=== PATIENT | female | born 1950 | race Caucasian/White ===

== ENCOUNTER → 2016-08-24 | Outpatient (CLI) | payer BC ==
--- NOTE | 2016-08-25 09:34 | MM ---
Reason for exam: screening (asymptomatic). Last mammogram was performed 2 years ago. History: Patient is postmenopausal. Family history of breast cancer in maternal aunt. Physical Findings: A clinical breast exam by your physician is recommended on an annual basis and results should be correlated with mammographic findings. MG Screening Mammo w CAD Bilateral CC and MLO view(s) were taken. Prior study comparison: August 23, 2014, mammogram, performed at [facility]. March 17, 2014, mammogram, performed at [facility]. There are scattered fibroglandular densities. There is no discrete abnormality. No significant changes when compared with prior studies. ASSESSMENT: Negative, BI-RAD 1 RECOMMENDATION: Routine screening mammogram of both breasts in 1 year.
== END | disposition home or self-care (01) ==
LOC: RADMAMWWP 16:29
PROVIDERS: ATTEND Family Medicine
DX: Z12.31 Encounter for screening mammogram for malignant neoplasm of breast (principal)

== ENCOUNTER → 2017-09-19 | Outpatient (CLI) | payer BC ==
--- NOTE | 2017-09-19 08:50 | BD ---
EXAMINATION TYPE: MG DEXA axial skeleton. DATE OF EXAM: 09/19/2017 COMPARISON: NONE CLINICAL HISTORY: asymptomatic menopause Height: 5'1 Weight: 214 FRAX RISK QUESTIONS: Alcohol (3 or more units per day): no Family History (Parent hip fracture): no Glucocorticoids (More than 3mos): no (Ex: prednisone, prednisolone, methylprednisolone, dexamethasone, and hydrocortisone). History of Fracture in Adulthood: yes Secondary Osteoporosis: 1. Type 1 Diabetes: no 2. Hyperthyroidism: no 3. Menopause before 45: no 4. Malnutrition: no 5. Chronic liver disease: no Rheumatoid Arthritis: no Current Tobacco Use: no RISK FACTORS HISTORY OF: Postmenopausal woman: MEDICATIONS: Additional Medications: blood pressure, cholesterol, Additional History: EXAM MEASUREMENTS: Bone mineral densitometry was performed using the [employer] System. Bone mineral density as measured about the Lumbar spine is: ----- L1-L4(G/cm2): 1.033 T Score Values are as follows: ----- L2: -1.5 ----- L3: -1.2 ----- L4: -1.6 ----- L1-L4: -1.2 Bone mineral density about the R hip (g/cm2): 0.938 Bone mineral density about the L hip (g/cm2): 0.910 T Score values are as follows: -----R Neck: -0.7 -----L Neck: -0.9 -----R Total: -0.3 -----L Total: 0.0 IMPRESSION: Osteopenia (T Score between -2.5 and -1). There is slightly increased risk of fracture and the patient may be considered for treatment. Re-Screen 2-5 years. NOTE: T-SCORE=SD OF THE YOUNG ADULT MEAN.
== END | disposition home or self-care (01) ==
LOC: RADBDWWP 07:10
PROVIDERS: ATTEND Family Medicine
DX: M85.80 Other specified disorders of bone density and structure, unspecified site (principal); Z78.0 Asymptomatic menopausal state
CPT/HCPCS: 77080

== ENCOUNTER → 2017-10-30 | Outpatient (CLI) | payer BC ==
--- NOTE | 2017-10-30 09:08 | MM ---
Reason for exam: screening (asymptomatic). Last mammogram was performed 1 year and 2 months ago. History: Patient is postmenopausal. Family history of breast cancer in maternal aunt. Physical Findings: A clinical breast exam by your physician is recommended on an annual basis and results should be correlated with mammographic findings. MG Screening Mammo w CAD Bilateral CC and MLO view(s) were taken. Prior study comparison: August 24, 2016, bilateral MG screening mammo w CAD. August 23, 2014, mammogram, performed at [facility]. There are scattered fibroglandular densities. There is no discrete abnormality. No significant changes when compared with prior studies. ASSESSMENT: Negative, BI-RAD 1 RECOMMENDATION: Routine screening mammogram of both breasts in 1 year.
== END | disposition home or self-care (01) ==
LOC: RADMAMWWP 07:02
PROVIDERS: ATTEND Family Medicine
DX: Z12.31 Encounter for screening mammogram for malignant neoplasm of breast (principal)
CPT/HCPCS: 77067

== ENCOUNTER 2018-12-03 08:55 | Emergency (ER) | payer MEDICARE, BC ==
[2018-12-03 09:04] VITALS: RESP 18; TEMP 98.2
[2018-12-03] MEDS ORDERED: ASPIRIN 81 MG PO STA (09:15)
[2018-12-03] MEDS ORDERED: NITROGLYCERIN OINT 1 INCH/GM PACKET TOPICAL STA (09:15)
[2018-12-03] MEDS ORDERED: SODIUM CHLORIDE 0.9% 500 ML 500 ML IV STA (09:15)
--- NOTE | 2018-12-03 09:20 | ED ---
General Adult HPI - General Chief complaint: Chest Pain Stated complaint: chest pain Time Seen by Provider: 12/03/18 09:00 Source: patient, RN notes reviewed Mode of arrival: ambulatory Limitations: no limitations - History of Present Illness Initial comments: This is a 68-year-old female who presents to the emergency department stating that on she was sitting down eating dinner she felt lightheaded and she got sick blood pressure sat down again and while taking her blood pressure she passed out. Patient's states she was only out for a few seconds and she was back to being alert and oriented. Patient states on Sunday she felt a little lightheaded initially in the early childhood education worker but after that she felt fine and then again this morning she started having some left-sided chest pain and some discomfort in her arm that lasted all about 5 minutes. Patient states during this time she also felt lightheaded. Patient states she has had a couple episodes since that she had palpitations. Patient denies any recent fever chills or cough. Patient denies any previous heart disease. Patient denies having any symptoms currently. Patient denies headache patient denies numbness weakness. Patient denies any leg swelling or calf tenderness. - Related Data Home Medications Medication Instructions Recorded Confirmed Calcium Carbonate/Vitamin D3 1 tab PO DAILY 12/03/18 12/03/18 [Calcium 500-Vit D3 200 Tablet] Lysine 500 mg PO DAILY 12/03/18 12/03/18 Montelukast [Singulair] 10 mg PO DAILY 12/03/18 12/03/18 Nebivolol HCl [Bystolic] 10 mg PO DAILY 12/03/18 12/03/18 Omeprazole 20 mg PO HS 12/03/18 12/03/18 Rosuvastatin Calcium [Crestor] 5 mg PO HS 12/03/18 12/03/18 Turmeric Root Extract [Turmeric] 500 mg PO DAILY 12/03/18 12/03/18 Allergies Allergy/AdvReac Type Severity Reaction Status Date / Time No Known Allergies Allergy Verified 12/03/18 09:46 Review of Systems ROS Statement: Those systems with pertinent positive or pertinent negative responses have been documented in the HPI. ROS Other: All systems not noted in ROS Statement are negative. Past Medical History Past Medical History: GERD/Reflux, Hyperlipidemia, Hypertension, Syncope History of Any Multi-Drug Resistant Organisms: None Reported Past Surgical History: Joint Replacement Past Psychological History: No Psychological Hx Reported Smoking Status: Never smoker Past Alcohol Use History: Occasional Past Drug Use History: None Reported General Exam - General Exam Comments Initial Comments: GENERAL: Patient is well-developed and well-nourished. Patient is nontoxic and well- hydrated and is in no acute distress. ENT: Neck is soft and supple. No significant lymphadenopathy is noted. Oropharynx is clear. Moist mucous membranes. Neck has full range of motion without eliciting any pain. EYES: The sclera were anicteric and conjunctiva were pink and moist. Extraocular movements were intact and pupils were equal round and reactive to light. Eyelids were unremarkable. PULMONARY: Unlabored respirations. Good breath sounds bilaterally. No audible rales rhonchi or wheezing was noted. CARDIOVASCULAR: There is a regular rate and rhythm without any murmurs gallops or rubs. ABDOMEN: Soft and nontender with normal bowel sounds. SKIN: Skin is clear with no lesions or rashes and otherwise unremarkable. NEUROLOGIC: Patient is alert and oriented x3. Cranial nerves II through XII are grossly intact. Motor and sensory are also intact. Normal speech, volume and content. Symmetrical smile. MUSCULOSKELETAL: Normal extremities with adequate strength and full range of motion. No lower extremity swelling or edema. No calf tenderness. LYMPHATICS: No significant lymphadenopathy is noted PSYCHIATRIC: Normal psychiatric evaluation. Limitations: no limitations Course Vital Signs 12/03/18 12/03/18 12/03/18 08:58 09:20 09:38 Temperature 98.2 F Pulse Rate 69 64 Pulse Rate [ 69 Retail Pharmacy Manager ] Pulse Rate [ 66 Sitting] Pulse Rate [ 70 Standing] Pulse Rate [ 63 Supine] Respiratory 18 18 Rate Blood Pressure 200/80 162/103 Blood Pressure 149/82 [Sitting] Blood Pressure 151/94 [Standing] Blood Pressure 159/81 [Supine] O2 Sat by Pulse 98 96 Oximetry 12/03/18 10:26 Temperature Pulse Rate 61 Pulse Rate [ Retail Pharmacy Manager ] Pulse Rate [ Sitting] Pulse Rate [ Standing] Pulse Rate [ Supine] Respiratory 18 Rate Blood Pressure 134/80 Blood Pressure [Sitting] Blood Pressure [Standing] Blood Pressure [Supine] O2 Sat by Pulse 100 Oximetry Medical Decision Making - Medical Decision Making EKG shows normal sinus rhythm at 65 bpm MS interval 270 QRS 130 for QT intervals 418 QTC is 434 per patient's EKG shows no ST segment elevation or depression or T wave abnormalities are noted. Chest x-ray shows no acute abnormality I went in the room and recommended that she be admitted to the hospital but she refused. is in the room and understood that I wanted the patient to be admitted. - Lab Data Result diagrams: 12/03/18 09:29 12/03/18 09:29 Lab Results 12/03/18 12/03/18 12/03/18 Range/Units 09:29 09:29 09:29 WBC 7.2 (3.8-10.6) k/uL RBC 4.95 (3.80-5.40) m/uL Hgb 13.2 (11.4-16.0) gm/dL Hct 40.7 (34.0-46.0) % MCV 82.3 (80.0-100.0) fL MCH 26.7 (25.0-35.0) pg MCHC 32.5 (31.0-37.0) g/dL RDW 13.6 (11.5-15.5) % Plt Count 383 (150-450) k/uL Neutrophils % 60 % Lymphocytes % 28 % Monocytes % 7 % Eosinophils % 2 % Basophils % 1 % Neutrophils # 4.3 (1.3-7.7) k/uL Lymphocytes # 2.0 (1.0-4.8) k/uL Monocytes # 0.5 (0-1.0) k/uL Eosinophils # 0.2 (0-0.7) k/uL Basophils # 0.1 (0-0.2) k/uL PT 10.2 (9.0-12.0) sec INR 0.9 (<1.2) APTT 23.8 (22.0-30.0) sec Sodium 140 (137-145) mmol/L Potassium 4.7 (3.5-5.1) mmol/L Chloride 104 (98-107) mmol/L Carbon Dioxide 26 (22-30) mmol/L Anion Gap 10 mmol/L BUN 20 H (7-17) mg/dL Creatinine 0.69 (0.52-1.04) mg/dL Est GFR (CKD-EPI)AfAm >90 (>60 ml/min/1.73 sqM) Est GFR (CKD-EPI)NonAf >90 (>60 ml/min/1.73 sqM) Glucose 154 H (74-99) mg/dL Calcium 9.8 (8.4-10.2) mg/dL Magnesium 1.8 (1.6-2.3) mg/dL Total Bilirubin 0.4 (0.2-1.3) mg/dL AST 22 (14-36) U/L ALT 24 (9-52) U/L Alkaline Phosphatase 61 (38-126) U/L Troponin I (0.000-0.034) ng/mL Total Protein 7.1 (6.3-8.2) g/dL Albumin 4.4 (3.5-5.0) g/dL TSH 1.220 (0.465-4.680) mIU/L Free T4 1.20 (0.78-2.19) ng/dL 12/03/18 Range/Units 09:29 WBC (3.8-10.6) k/uL RBC (3.80-5.40) m/uL Hgb (11.4-16.0) gm/dL Hct (34.0-46.0) % MCV (80.0-100.0) fL MCH (25.0-35.0) pg MCHC (31.0-37.0) g/dL RDW (11.5-15.5) % Plt Count (150-450) k/uL Neutrophils % % Lymphocytes % % Monocytes % % Eosinophils % % Basophils % % Neutrophils # (1.3-7.7) k/uL Lymphocytes # (1.0-4.8) k/uL Monocytes # (0-1.0) k/uL Eosinophils # (0-0.7) k/uL Basophils # (0-0.2) k/uL PT (9.0-12.0) sec INR (<1.2) APTT (22.0-30.0) sec Sodium (137-145) mmol/L Potassium (3.5-5.1) mmol/L Chloride (98-107) mmol/L Carbon Dioxide (22-30) mmol/L Anion Gap mmol/L BUN (7-17) mg/dL Creatinine (0.52-1.04) mg/dL Est GFR (CKD-EPI)AfAm (>60 ml/min/1.73 sqM) Est GFR (CKD-EPI)NonAf (>60 ml/min/1.73 sqM) Glucose (74-99) mg/dL Calcium (8.4-10.2) mg/dL Magnesium (1.6-2.3) mg/dL Total Bilirubin (0.2-1.3) mg/dL AST (14-36) U/L ALT (9-52) U/L Alkaline Phosphatase (38-126) U/L Troponin I <0.012 (0.000-0.034) ng/mL Total Protein (6.3-8.2) g/dL Albumin (3.5-5.0) g/dL TSH (0.465-4.680) mIU/L Free T4 (0.78-2.19) ng/dL Disposition Clinical Impression: Syncope Disposition: HOME SELF-CARE Condition: Good Instructions (If sedation given, give patient instructions): Syncope (ED) Is patient prescribed a controlled substance at d/c from ED?: No Referrals: Adriana Schmitz MD [Primary Care Provider] - 1-2 days Time of Disposition: 11:44
[2018-12-03 09:46] LABS: Basophils # (A) 0.1 k/uL (0-0.2); Basophils % (A) 1 %; Eosinophils # (A) 0.2 k/uL (0-0.7); Eosinophils % (A) 2 %; HCT 40.7 % (34.0-46.0); HGB 13.2 gm/dL (11.4-16.0); Lymphocytes % (A) 28 %; MCH 26.7 pg (25.0-35.0); MCHC 32.5 g/dL (31.0-37.0); MCV 82.3 fL (80.0-100.0); Monocytes # (A) 0.5 k/uL (0-1.0); Monocytes % (A) 7 %; Neutrophils # (A) 4.3 k/uL (1.3-7.7); Neutrophils % (A) 60 %; Platelet Count 383 k/uL (150-450); RBC 4.95 m/uL (3.80-5.40); RDW 13.6 % (11.5-15.5); WBC 7.2 k/uL (3.8-10.6)
[2018-12-03 09:54] LABS: INR 0.9 (<1.2); Partial Thromboplastin Time 23.8 sec (22.0-30.0); Prothrombin Time 10.2 sec (9.0-12.0)
--- NOTE | 2018-12-03 10:01 | XR ---
EXAMINATION TYPE: XR chest 2V DATE OF EXAM: 12/03/2018 COMPARISON: None HISTORY: 68-year-old female with chest pain TECHNIQUE: PA and lateral views FINDINGS: The cardiomediastinal silhouette, aorta, and pulmonary vasculature are within normal limits. Slightly low lung volumes with crowded vascular markings. There may be some mild peribronchial cuffing centra lly. Otherwise, lungs and pleural spaces are clear. IMPRESSION: Some hypoventilatory changes. There may be mild central peribronchial cuffing that could reflect bron chitis or asthma. Otherwise, no acute cardiopulmonary process.
[2018-12-03 10:02] LABS: ALT 24 U/L (9-52); AST 22 U/L (14-36); Albumin 4.4 g/dL (3.5-5.0); Alkaline Phosphatase 61 U/L (38-126); Anion Gap 10 mmol/L; Blood Urea Nitrogen 20 mg/dL (7-17); Calcium 9.8 mg/dL (8.4-10.2); Carbon Dioxide 26 mmol/L (22-30); Chloride 104 mmol/L (98-107); Glucose 154 mg/dL (74-99); Magnesium 1.8 mg/dL (1.6-2.3); Potassium 4.7 mmol/L (3.5-5.1); Sodium 140 mmol/L (137-145); Total Bilirubin 0.4 mg/dL (0.2-1.3); Total Protein 7.1 g/dL (6.3-8.2)
[2018-12-03 12:14] VITALS: BP 134/77; PULSE 63
== END 2018-12-03 12:00 | disposition home or self-care (01) ==
LOC: EC 08:55
DX: R55 Syncope and collapse (principal); R07.9 Chest pain, unspecified; R42 Dizziness and giddiness; K21.9 Gastro-esophageal reflux disease without esophagitis; E78.5 Hyperlipidemia, unspecified; I10 Essential (primary) hypertension; Z96.89 Presence of other specified functional implants; Z53.29 Procedure and treatment not carried out because of patient's decision for other reasons; Z79.899 Other long term (current) drug therapy
CPT/HCPCS: 36415; 71046; 80053; 83735; 84439; 84443; 84484; 85025; 85610; 85730; 93005; 99285

== ENCOUNTER → 2018-12-10 | Outpatient (CLI) | payer BC, MEDICARE | END | disposition home or self-care (01) | LOC: RADECHMAIN 12:15 | PROVIDERS: ATTEND Family Medicine | DX: I49.9 Cardiac arrhythmia, unspecified (principal) | CPT/HCPCS: 93270 ==

== ENCOUNTER → 2018-12-13 | Outpatient (CLI) | payer MEDICARE, BC ==
[2018-12-13 18:41] LABS: LDL Cholesterol,Calculated 82.8 mg/dL (0.0-131.0); VLDL Calculation 26.2 mg/dL (5.00-40.00)
== END | disposition home or self-care (01) ==
LOC: LABWHC1 08:57
PROVIDERS: ATTEND Family Medicine
DX: E78.00 Pure hypercholesterolemia, unspecified (principal)
CPT/HCPCS: 36415; 80061

== ENCOUNTER → 2019-04-11 | Outpatient (CLI) | payer BC ==
--- NOTE | 2019-04-14 09:35 | MM ---
Reason for exam: screening (asymptomatic). Last mammogram was performed 1 year and 5 months ago. History: Patient is postmenopausal and is nulliparous. Family history of breast cancer in maternal aunt. Physical Findings: A clinical breast exam by your physician is recommended on an annual basis and results should be correlated with mammographic findings. MG Screening Mammo w CAD Bilateral CC and MLO view(s) were taken. Prior study comparison: October 30, 2017, bilateral MG screening mammo w CAD. August 24, 2016, bilateral MG screening mammo w CAD. There are scattered fibroglandular densities. No significant changes when compared with prior studies. ASSESSMENT: Negative, BI-RAD 1 RECOMMENDATION: Routine screening mammogram of both breasts in 1 year.
== END | disposition home or self-care (01) ==
LOC: RADMAMWWP 07:06
PROVIDERS: ATTEND Family Medicine
DX: Z12.31 Encounter for screening mammogram for malignant neoplasm of breast (principal)
CPT/HCPCS: 77067

== ENCOUNTER → 2020-04-30 | Outpatient (CLI) | payer BC ==
--- NOTE | 2020-05-03 14:02 | MM ---
Reason for exam: screening (asymptomatic). Last mammogram was performed 1 year and 1 month ago. History: Patient is postmenopausal and is nulliparous. Family history of breast cancer in maternal aunt. Physical Findings: A clinical breast exam by your physician is recommended on an annual basis and results should be correlated with mammographic findings. MG Screening Mammo w CAD Bilateral CC and MLO view(s) were taken. Prior study comparison: April 11, 2019, bilateral MG screening mammo w CAD. October 30, 2017, bilateral MG screening mammo w CAD. There are scattered fibroglandular densities. No significant changes when compared with prior studies. ASSESSMENT: Benign, BI-RAD 2 RECOMMENDATION: Routine screening mammogram of both breasts in 1 year.
--- NOTE | 2020-05-03 14:21 | BD ---
EXAMINATION TYPE: Axial Bone Density DATE OF EXAM: 04/30/2020 COMPARISON: 09.19.2017 CLINICAL HISTORY: 70 YR OLD FEMALE.....ICD-10 CODE: Z78.0 POST MENOPAUSAL Height: 60.2 Weight: 195 FRAX RISK QUESTIONS: History of Fracture in Adulthood: YES RISK FACTORS HISTORY OF: HX OF RT ANKLE FRACTURE ADULT Postmenopausal woman: YES, AT 53 YRS OLD Lost more than 2 inches in height since high school: YES Hyperparathyroidism: NO Adrenal Insufficiency: NO MEDICATIONS: Additional Medications: BP MEDS, METFORMIN, CALCIUM WITH D, REFLUX MEDS, TUMS, STATIN FOR CHOLESTEROL Additional History: HYPERTENSION, DIABETIC, REFLUX, CHOLESTEROL EXAM MEASUREMENTS: Bone mineral densitometry was performed using the [employer] System. Bone mineral density as measured about the Lumbar spine is: ----- L1-L4(G/cm2): 1.083 T Score Values are as follows: ----- L1: -1.2 ----- L2: -1.0 ----- L3: -0.4 ----- L4: -0.9 ----- L1-L4: -0.8 Bone mineral density has: Increased 7.8% since study of: 09.19.2017 Bone mineral density about the R hip (g/cm2): 0.959 Bone mineral density about the L hip (g/cm2): 1.038 T Score values are as follows: -----R Neck: -0.6 -----L Neck: -0.8 -----R Total: -0.4 -----L Total: 0.2 Bone mineral density has: Increased 1.2% since study of: 09.19.2017 FRAX%s: THERE IS A 12.2% CHANCE FOR A MAJOR OSTEOPOROTIC FX AND A 0.9% FOR HIP....PROBABILITY FOR F X IN 10 YRS TIME IMPRESSION: Normal (Values between +1 and -1 indicate normal bone mass). Consider repeating this study in 5 year s or sooner if there is some new clinical indication. NOTE: T-SCORE=SD OF THE YOUNG ADULT MEAN.
== END | disposition home or self-care (01) ==
LOC: RADBDWWP 13:05
PROVIDERS: ATTEND Family Medicine
DX: Z12.31 Encounter for screening mammogram for malignant neoplasm of breast (principal); M89.9 Disorder of bone, unspecified
CPT/HCPCS: 77067; 77080

== ENCOUNTER → 2021-01-28 | Day surgery (SDC) | payer MEDICARE ==
[2021-01-26 08:19] VITALS: BMI 36.6
[~2021-01-28] MED LIST: LACTATED RINGERS 1,000 ML IV SCH; LIDOCAINE 1% (10MG/ML) FOR IV START INTRADERMA PRN; PROPOFOL 10 MG/ML 20 ML VIAL IV ONE
[2021-01-28 08:05] LABS: Glucose,Whole Blood 167 mg/dL (75-99)
[2021-01-28 08:06] VITALS: TEMP 97.4
--- NOTE | 2021-01-28 08:45 | P.PCN ---
Date of Procedure: 01/28/21 Procedure(s) Performed: BRIEF HISTORY: Patient is a 71-year-old pleasant white female scheduled for an elective colonoscopy as a part of evaluation of positivecolouard., Her last colonoscopy was 10 years ago PROCEDURE PERFORMED: Colonoscopy. PREOPERATIVE DIAGNOSIS: Positive cologuard. IV sedation per Anesthesia. PROCEDURE: After informed consent was obtained, the patient, was brought into the endoscopy unit. IV sedation was administered by Anesthesia under continuous monitoring. Digital rectal examination was normal. Initially the Olympus CF-160 flexible video colonoscope was then inserted in the rectum, gradually advanced into the cecum without any difficulty. Careful examination was performed as the scope was gradually being withdrawn. Ileocecal valve and the appendiceal orifice were visualized and appeared normal. Prep was excellent. Mucosa of the cecum, ascending colon, transverse colon, descending colon, sigmoid colon, and rectum appeared normal. Scattered sigmoid diverticulosis. Retroflexion was performed in the rectum and no lesions were seen. The patient tolerated the procedure well. IMPRESSION: Normal-appearing colon from rectum to cecum with no evidence of colorectal neoplasia . Scattered sigmoid diverticulosis. RECOMMENDATIONS: Findings of this examination were discussed with the patient as well as a family.. She was advised to have a repeat screening colonoscopy in 10 years.
[2021-01-28 08:58] VITALS: RESP 16
[2021-01-28 09:17] VITALS: BP 152/80; PULSE 75
== END ==
LOC: ORWHC2ENDO 07:26
PROVIDERS: ATTEND Internal Medicine Gastroenterology
DX: R19.5 Other fecal abnormalities (principal); K57.90 Diverticulosis of intestine, part unspecified, without perforation or abscess without bleeding; Z79.899 Other long term (current) drug therapy; I10 Essential (primary) hypertension; E78.5 Hyperlipidemia, unspecified; E11.9 Type 2 diabetes mellitus without complications; K21.9 Gastro-esophageal reflux disease without esophagitis
CPT/HCPCS: J2704; G0121

== ENCOUNTER → 2021-06-17 | Outpatient (CLI) | payer MEDICARE ==
--- NOTE | 2021-06-20 10:48 | MM ---
Reason for exam: screening (asymptomatic). Last mammogram was performed 1 year and 2 months ago. History: Patient is postmenopausal and is nulliparous. Family history of breast cancer in maternal aunt. Physical Findings: A clinical breast exam by your physician is recommended on an annual basis and results should be correlated with mammographic findings. MG 3D Screening Mammo W/Cad Bilateral CC and MLO view(s) were taken. Prior study comparison: April 30, 2020, bilateral MG screening mammo w CAD. April 11, 2019, bilateral MG screening mammo w CAD. There are scattered fibroglandular densities. No significant changes when compared with prior studies. ASSESSMENT: Benign, BI-RAD 2 RECOMMENDATION: Routine screening mammogram of both breasts in 1 year.
== END | disposition home or self-care (01) ==
LOC: RADMAMWWP 11:38
PROVIDERS: ATTEND Family Medicine
DX: Z12.31 Encounter for screening mammogram for malignant neoplasm of breast (principal); Z80.3 Family history of malignant neoplasm of breast; Z78.0 Asymptomatic menopausal state
CPT/HCPCS: 77063; 77067

== ENCOUNTER → 2022-01-24 | Outpatient (CLI) | payer MEDICARE ==
--- NOTE | 2022-01-25 07:11 | US ---
EXAMINATION TYPE: US pelvis complete transvag DATE OF EXAM: 01/24/2022 COMPARISON: NONE CLINICAL HISTORY: POSTMENOPAUSAL BLEEDING N95.0. Pt experienced PMB once, menopausal since 2005 TECHNIQUE: Transvaginal (TV) and Transabdominal (TA) . Transabdominal sonographic images of the pel vis were acquired. Transvaginal sonographic images were medically necessary to better assess the fol lowing anatomy: Uterus, endometrium and ovaries Date of LMP: 2005 EXAM MEASUREMENTS: Uterus: 5.4 x 3.2 x 4.4 cm Endometrial Stripe: 0.5 cm Right Ovary: 1.8 x 0.9 x 1.3 cm Left Ovary: 1.3 x0.8 x 1.0 cm 1. Uterus: Anteverted Appears heterogeneous, anterior fibroid noted luis. 2.7 x 2.2 x2.4cm 2. Endometrium: wnl 3. Right Ovary: wnl as vis, subcentimeter follicle noted luis. 0.4x0.3x0.3cm 4. Left Ovary: wnl as vis 5. Bilateral Adnexa: wnl 6. Posterior cul-de-sac: trace ff vis IMPRESSION: 1. Leiomyomatous change of the uterus. 2. Right ovarian follicle.
== END | disposition home or self-care (01) ==
LOC: RADUSWWP 16:14
PROVIDERS: ATTEND Family Medicine
DX: D25.9 Leiomyoma of uterus, unspecified (principal); N95.0 Postmenopausal bleeding
CPT/HCPCS: 76830; 76856

== ENCOUNTER → 2022-06-19 | Outpatient (CLI) | payer MEDICARE ==
--- NOTE | 2022-06-20 08:26 | MM ---
Reason for Exam: Screening (asymptomatic). Last screening mammogram was performed 12 month(s) ago. Patient History: Menarche at age 14. Patient has no children. Maternal aunt had breast cancer. Risk Values: Nellie 5 year model risk: 1.9%. NCI Lifetime model risk: 5.4%. Prior Study Comparison: 04/11/2019 Bilateral Screening Mammogram, [facility]. 04/30/2020 Bilateral Screening Mammogram, [facility]. 06/17/2021 Bilateral Screening Mammogram, [facility]. Tissue Density: There are scattered fibroglandular densities. Findings: Analyzed By CAD. There are a few benign-appearing tiny round calcifications bilaterally redemonstrated. There is no suspicious group of microcalcifications or new suspicious mass in either breast. Overall Assessment: Benign, BI-RAD 2 Management: Screening Mammogram of both breasts in 1 year. A clinical breast exam by your physician is recommended on an annual basis and results should be correlated with mammographic findings. Electronically signed and approved by: Calderon Mane M.D.
== END | disposition home or self-care (01) ==
LOC: RADMAMWWP 08:09
PROVIDERS: ATTEND Family Medicine
DX: Z12.31 Encounter for screening mammogram for malignant neoplasm of breast (principal)
CPT/HCPCS: 77063; 77067

== ENCOUNTER 2022-07-25 06:56 | Day surgery (SDC) | payer MEDICARE ==
[2022-07-20 14:19] VITALS: BMI 35.9
[~2022-07-25 06:56] MED LIST changes: -PROPOFOL 10 MG/ML 20 ML VIAL IV ONE
[2022-07-25] MEDS ORDERED: ONDANSETRON 4 MG/2 ML VIAL IVP PRN (07:00)
[2022-07-25 07:34] VITALS: TEMP 96.9
[2022-07-25 07:49] LABS: Glucose,Whole Blood 151 mg/dL (70-110)
[2022-07-25] MEDS ORDERED: LIDOCAINE 2% INJ 20 MG/ML (2 ML VIAL) ONE (08:25)
[2022-07-25] MEDS ORDERED: PROPOFOL 10 MG/ML 20 ML VIAL IV ONE (08:25)
--- NOTE | 2022-07-25 08:39 | P.PCN ---
Date of Procedure: 07/25/22 Procedure(s) Performed: BRIEF HISTORY: Patient is a 72-year-old, pleasant, white female scheduled for an upper endoscopy as a part of evaluation of long-standing history of GERD and presently on Prilosec 20 mg daily for several years.. PROCEDURE PERFORMED: Esophagogastroduodenoscopy with biopsy PREOPERATIVE DIAGNOSIS: Long-standing history of GERD. IV sedation per anesthesia. PROCEDURE: After informed consent was obtained, the patient was brought into the endoscopy unit. IV sedation was administered by Anesthesia under continuous monitoring. Initially the Olympus GIF-140 video endoscope was inserted into the mouth. Esophagus intubated without any difficulty. It was gradually advanced into the stomach and duodenum and carefully examined. The bulb and the second part of the duodenum appeared normal. The scope at this time was withdrawn to the stomach, adequately insufflated with air, and upon careful examination, mucosa of the antrum had patchy areas of erythema and biopsies were done from this area. Mucosa of the, body, cardia and the fundus appeared normal. The scope was then withdrawn into the esophagus. The GE junction was located at 39 cm from the incisors. Widely patent distal esophageal Schatzki's ring was identified. Mall sliding Hiatal hernia noted. The esophagus appeared normal. There were no erosions or ulcerations seen and the patient tolerated the procedure well. IMPRESSION: 1. Small sliding type hiatal hernia with a widely patent distal esophageal Schatzki's ring.. No evidence of Trejo's esophagus 2. Mild antral gastritis. RECOMMENDATIONS: The findings of this examination were discussed with the patient the lesser family. She was advised to follow with the biopsy results. Continue with omeprazole 20 mg daily and follow antireflux measures..
[2022-07-25 09:07] VITALS: BP 112/74; PULSE 75; RESP 16
== END 2022-07-25 09:42 | disposition home or self-care (01) ==
LOC: ORWHC2ENDO 06:56
PROVIDERS: ATTEND Internal Medicine Gastroenterology
DX: K29.50 Unspecified chronic gastritis without bleeding (principal); K44.9 Diaphragmatic hernia without obstruction or gangrene; K22.2 Esophageal obstruction; I10 Essential (primary) hypertension; E78.5 Hyperlipidemia, unspecified; E11.9 Type 2 diabetes mellitus without complications; M19.90 Unspecified osteoarthritis, unspecified site; K21.9 Gastro-esophageal reflux disease without esophagitis; Z79.84 Long term (current) use of oral hypoglycemic drugs; Z79.1 Long term (current) use of non-steroidal anti-inflammatories (NSAID); Z79.899 Other long term (current) drug therapy; Z98.890 Other specified postprocedural states; Z88.0 Allergy status to penicillin
CPT/HCPCS: 88305; 43239; J2704; J2001

== ENCOUNTER → 2023-06-20 | Outpatient (CLI) | payer MEDICARE ==
--- NOTE | 2023-06-21 09:20 | MM ---
Reason for Exam: Screening (asymptomatic). Last screening mammogram was performed 12 month(s) ago. Patient History: Menarche at age 14. Patient has no children. Maternal aunt had breast cancer. Risk Values: Nellie 5 year model risk: 2.0%. NCI Lifetime model risk: 5.1%. Prior Study Comparison: 04/30/2020 Bilateral Screening Mammogram, [facility]. 06/17/2021 Bilateral Screening Mammogram, [facility]. 06/19/2022 Bilateral MG 3D screening mammo w/cad, [facility]. Tissue Density: There are scattered fibroglandular densities. Findings: Analyzed By CAD. There is no suspicious group of microcalcifications or new suspicious mass in either breast. Overall Assessment: Negative, BI-RAD 1 Management: Screening Mammogram of both breasts in 1 year. . Patient should continue monthly self-breast exams. A clinical breast exam by your physician is recommended on an annual basis. This exam should not preclude additional follow-up of suspicious palpable abnormalities. Note on Nellie scores and lifetime risk: 1. A Nellie score greater than 3% is considered moderate risk. If this is the case, consider specialist referral to assess eligibility for a risk reducing agent. 2. If overall lifetime risk for the development of breast cancer is 20% or higher, the patient may qualify for future screening with alternating mammogram and breast MRI. Electronically signed and approved by: Walker Jerez M.D. Radiologis
--- NOTE | 2023-06-25 13:24 | BD ---
EXAMINATION TYPE: Axial Bone Density DATE OF EXAM: 06/20/2023 CLINICAL HISTORY: 73 years old Female. ICD-10 CODE: Z78.0 POST MENOPUASAL WITHOUT HRT Height: 60.2 in Weight: 176 lbs FRAX RISK QUESTIONS: Family History (Parent hip fracture): yes father History of Fracture in Adulthood: rt ankle age 60 RISK FACTORS HISTORY OF: Active: yes Postmenopausal woman: age 53 MEDICATIONS: Additional Medications: calcium, vit d, diabetes meds, cholesterol meds, omeprazole, allergy meds EXAM MEASUREMENTS: Bone mineral densitometry was performed using the [employer]. Bone mineral density as measured about the Lumbar spine is: ----- L1-L4(G/cm2): 1.044 T Score Values are as follows: ----- L1: -1.2 ----- L2: -1.3 ----- L3: -1.1 ----- L4: -1.1 ----- L1-L4: -1.1 Z Score Values are as follows: ----- L1: 0.0 ----- L2: -0.1 ----- L3: 0.1 ----- L4: 0.1 ----- L1-L4: 0.1 Bone mineral density has: Decreased -3.6% since study of: 04/30/2020 Bone mineral density about the R hip (g/cm2): 0.945 Bone mineral density about the L hip (g/cm2): 0.975 T Score values are as follows: -----R Neck: -0.8 -----L Neck: -1.0 -----R Total: -0.5 -----L Total: -0.3 Z Score values are as follows: -----R Neck: 0.7 -----L Neck: 0.5 -----R Total: 0.7 -----L Total: 1.0 Bone mineral density has: Decreased -3.9% since study of: 04/30/2020 FRAX%s: The graph provided illustrates a 19.8% chance for a major osteoporotic fx and a 4.4% chance f or the hips probability for fx in 10 years time. IMPRESSION: Osteopenia (T Score between -2.5 and -1). There is slightly increased risk of fracture and the patient may be considered for treatment. Re-Screen 2-5 years. NOTE: T-SCORE=SD OF THE YOUNG ADULT MEAN.
== END | disposition home or self-care (01) ==
LOC: RADMAMWWP 08:01
PROVIDERS: ATTEND Family Medicine
DX: Z12.31 Encounter for screening mammogram for malignant neoplasm of breast (principal); M85.88 Other specified disorders of bone density and structure, other site; Z78.0 Asymptomatic menopausal state; Z80.3 Family history of malignant neoplasm of breast
CPT/HCPCS: 77063; 77067; 77080

== ENCOUNTER 2023-12-30 02:40 | Observation (INO) | payer MEDICARE ==
[2023-12-30] MEDS: MORPHINE SULFATE 4 MG/ML SYRINGE IVP STA (04:42)
--- NOTE | 2023-12-30 06:04 | ED ---
Extremity Problem HPI - General Chief complaint: Extremity Problem,Nontraumatic Stated complaint: Left Leg Pain Time Seen by Provider: 12/30/23 03:38 Source: patient Mode of arrival: ambulatory Limitations: no limitations - History of Present Illness Initial comments: Zamzam is a pleasant 73-year-old female who presents the ER today for evaluation of severe posterior left thigh pain. Patient states she was in her usual state of health throughout the day yesterday she walked around farmers market without pain. This evening she developed pain that is in the back of her leg. Pain does not seem to radiate up or down. Pain is not similar to the sciatica she is experienced in her other leg. Patient states that the pain is worse with any compression such as laying down or sitting, seems to be better when she stands but she cannot find a comfortable position. - Related Data Home Medications Medication Instructions Recorded Confirmed Lysine 500 mg PO DAILY 12/03/18 07/20/22 Omeprazole 20 mg PO 1700 12/03/18 07/20/22 Rosuvastatin Calcium [Crestor] 10 mg PO HS 12/03/18 07/20/22 Turmeric Root Extract [Turmeric] 500 mg PO BID 12/03/18 07/20/22 Losartan [Cozaar] 50 mg PO BID 01/26/21 07/20/22 hydroCHLOROthiazide [Hydrodiuril] 12.5 mg PO DAILY 01/26/21 07/20/22 metFORMIN HCL [Glucophage] 500 mg PO QID 01/26/21 07/20/22 Multivitamins, Thera [Multivitamin 1 tab PO DAILY 07/20/22 07/20/22 (formulary)] Vitafusion 1 tab PO DAILY 07/20/22 Loratadine 10 mg PO HS 07/21/22 07/21/22 Montelukast [Singulair] 10 mg PO HS 07/21/22 07/21/22 Allergies Allergy/AdvReac Type Severity Reaction Status Date / Time No Known Allergies Allergy Verified 07/20/22 14:10 Review of Systems ROS Statement: Those systems with pertinent positive or pertinent negative responses have been documented in the HPI. ROS Other: All systems not noted in ROS Statement are negative. Past Medical History Past Medical History: Diabetes Mellitus, GERD/Reflux, Hyperlipidemia, Hypertension, Osteoarthritis (OA), Syncope Additional Past Medical History / Comment(s): positive cologuard, had covid October 2020,previous palpitations and fluttering of heart sees Dr Morris no problems at this time, hemmorhhoid History of Any Multi-Drug Resistant Organisms: None Reported Past Surgical History: Orthopedic Surgery Additional Past Surgical History / Comment(s): ORIF rt ankle-hardware later removed, colonscopy Past Anesthesia/Blood Transfusion Reactions: Motion Sickness Past Psychological History: No Psychological Hx Reported Smoking Status: Never smoker Past Alcohol Use History: None Reported Past Drug Use History: None Reported - Past Family History Mother Family Medical History: No Reported History Brother(s) Family Medical History: Cancer Additional Family Medical History / Comment(s): lung General Exam - General Exam Comments Initial Comments: Physical Exam GENERAL: Patient is well-developed and well-nourished. Patient is nontoxic Patient appears uncomfortable. HENT: Normocephalic, Atraumatic. EYES: PERRL, EOMI PULMONARY: Unlabored respirations. CARDIOVASCULAR: RRR Warm and well perfused extremities Strong femoral DP and PT pulses ABDOMEN: Non-distended SKIN: No rashes or bruising : Deferred NEUROLOGIC: Alert and oriented Normal speech Normal gait MUSCULOSKELETAL: Moving all extremities with no apparent injury PSYCHIATRIC: No SI/HI Limitations: no limitations Course Vital Signs 12/30/23 12/30/23 02:52 06:39 Temperature 98 F Pulse Rate 94 85 Respiratory 20 18 Rate Blood Pressure 162/83 128/72 O2 Sat by Pulse 99 98 Oximetry Medical Decision Making - Medical Decision Making Was pt. sent in by a medical professional or institution (, PA, TRAY FILLER, urgent care, hospital, or correction...) When possible be specific @ -No Did you speak to anyone other than the patient for history (EMS, parent, family, police, friend...)? What history was obtained from this source @ - at bedside Did you review nursing and triage notes (agree or disagree)? Why? @ -I reviewed and agree with nursing and triage notes Were old charts reviewed (outside hosp., previous admission, EMS record, old EKG, old radiological studies, urgent care reports/EKG's, correction records)? Report findings @Previous labs were reviewed Differential Diagnosis (chest pain, altered mental status, abdominal pain women, abdominal pain men, vaginal bleeding, weakness, fever, dyspnea, syncope, headache, dizziness, GI bleed, back pain, seizure, CVA, palpatations, mental health)? @ -Differential includes pathologic fracture, ischemic injury, infection, muscle strain EKG interpreted by me (3pts min.). @ -As above X-rays interpreted by me (1pt min.). @ -No obvious bony abnormality CT interpreted by me (1pt min.). @ -None done U/S interpreted by me (1pt. min.). @ -None done What testing was considered but not performed or refused? (CT, X-rays, U/S, labs)? Why? @ -CTA to evaluate for arterial blood flow however contraindicated due to patient's kidney function What meds were considered but not given or refused? Why? @ -None Did you discuss the management of the patient with other professionals (professionals i.e. , PA, TRAY FILLER, lab, RT, psych nurse, vp digital marketing social media and crm, building maintenance worker, teacher, medical scientific officer, telephonic nurse case manager)? Give summary @ -No Was smoking cessation discussed for >3mins.? @ -No Was critical care preformed (if so, how long)? @ -No Were there social determinants of health that impacted care today? How? (Homelessness, low income, unemployed, alcoholism, drug addiction, transportati on, low edu. Level, literacy, decrease access to med. care, longterm, rehab)? @ -No Was there de-escalation of care discussed even if they declined (Discuss DNR or withdrawal of care, Hospice)? DNR status @ -No What co-morbidities impacted this encounter? (DM, HTN, Smoking, COPD, CAD, Cancer, CVA, ARF, Chemo, Hep., AIDS, mental health diagnosis, sleep apnea, morbid obesity)? @ -None Was patient admitted / discharged? Hospital course, mention meds given and route, prescriptions, significant lab abnormalities, going to OR and other pertinent info. @ -Admit The patient was seen and evaluated history is obtained from patient. Labs and x-ray were ordered patient was treated with morphine she then had some nausea and vomiting. Patient was then given Toradol. Labs resulted with acute kidney injury, lactic is 2.0, creatinine kinase is mildly elevated and magnesium is critically low. IV fluids, magnesium, Arterial US and admission were ordered. PAtient care discussed with Amy Christian NP for [facility] Undiagnosed new problem with uncertain prognosis? @ -No Drug Therapy requiring intensive monitoring for toxicity (Heparin, Nitro, Insulin, Cardizem)? @ -No Were any procedures done? @ -No Diagnosis/symptom? @ -Limb pain, NATALEE, hypomagnesemia, Acute, or Chronic, or Acute on Chronic? @ -Acute Uncomplicated (without systemic symptoms) or Complicated (systemic symptoms)? @ -Complicated Side effects of treatment? @ -No Exacerbation, Progression, or Severe Exacerbation? @ -No Poses a threat to life or bodily function? How? (Chest pain, USA, PR, pneumonia, PE, COPD, DKA, ARF, appy, cholecystitis, CVA, Diverticulitis, Homicidal, Suicidal, threat to staff... and all critical care pts) @ -No - Lab Data Result diagrams: 12/30/23 06:08 12/30/23 06:08 Lab Results 12/30/23 12/30/23 12/30/23 Range/Units 06:08 06:08 06:08 WBC 7.6 (3.8-10.6) k/uL RBC 4.22 (3.80-5.40) m/uL Hgb 11.8 (11.4-16.0) gm/dL Hct 36.7 (34.0-46.0) % MCV 87.2 (80.0-100.0) fL MCH 28.1 (25.0-35.0) pg MCHC 32.2 (31.0-37.0) g/dL RDW 13.0 (11.5-15.5) % Plt Count 370 (150-450) k/uL MPV 7.9 Neutrophils % 80 % Lymphocytes % 15 % Monocytes % 3 % Eosinophils % 0 % Basophils % 1 % Neutrophils # 6.1 (1.3-7.7) k/uL Lymphocytes # 1.1 (1.0-4.8) k/uL Monocytes # 0.2 (0-1.0) k/uL Eosinophils # 0.0 (0-0.7) k/uL Basophils # 0.1 (0-0.2) k/uL D-Dimer 0.34 (<0.60) mg/L FEU Sodium 136 L (137-145) mmol/L Potassium 4.2 (3.5-5.1) mmol/L Chloride 102 (98-107) mmol/L Carbon Dioxide 23 (22-30) mmol/L Anion Gap 11 mmol/L BUN 45 H (7-17) mg/dL Creatinine 2.15 H (0.52-1.04) mg/dL Est GFR (CKD-EPI)AfAm 26 (>60 ml/min/1.73 sqM) Est GFR (CKD-EPI)NonAf 22 (>60 ml/min/1.73 sqM) Glucose 161 H (74-99) mg/dL Plasma Lactic Acid Mo (0.7-2.0) mmol/L Calcium 9.6 (8.4-10.2) mg/dL Magnesium 1.4 L (1.6-2.3) mg/dL Total Bilirubin 0.3 (0.2-1.3) mg/dL AST 23 (14-36) U/L ALT 14 (4-34) U/L Alkaline Phosphatase 51 (38-126) U/L Creatine Kinase 172 H (30-135) U/L Total Protein 7.0 (6.3-8.2) g/dL Albumin 4.5 (3.5-5.0) g/dL 12/30/23 Range/Units 06:08 WBC (3.8-10.6) k/uL RBC (3.80-5.40) m/uL Hgb (11.4-16.0) gm/dL Hct (34.0-46.0) % MCV (80.0-100.0) fL MCH (25.0-35.0) pg MCHC (31.0-37.0) g/dL RDW (11.5-15.5) % Plt Count (150-450) k/uL MPV Neutrophils % % Lymphocytes % % Monocytes % % Eosinophils % % Basophils % % Neutrophils # (1.3-7.7) k/uL Lymphocytes # (1.0-4.8) k/uL Monocytes # (0-1.0) k/uL Eosinophils # (0-0.7) k/uL Basophils # (0-0.2) k/uL D-Dimer (<0.60) mg/L FEU Sodium (137-145) mmol/L Potassium (3.5-5.1) mmol/L Chloride (98-107) mmol/L Carbon Dioxide (22-30) mmol/L Anion Gap mmol/L BUN (7-17) mg/dL Creatinine (0.52-1.04) mg/dL Est GFR (CKD-EPI)AfAm (>60 ml/min/1.73 sqM) Est GFR (CKD-EPI)NonAf (>60 ml/min/1.73 sqM) Glucose (74-99) mg/dL Plasma Lactic Acid Mo 2.0 (0.7-2.0) mmol/L Calcium (8.4-10.2) mg/dL Magnesium (1.6-2.3) mg/dL Total Bilirubin (0.2-1.3) mg/dL AST (14-36) U/L ALT (4-34) U/L Alkaline Phosphatase (38-126) U/L Creatine Kinase (30-135) U/L Total Protein (6.3-8.2) g/dL Albumin (3.5-5.0) g/dL Disposition Clinical Impression: NATALEE (acute kidney injury), Hypomagnesemia, Intractable pain, Rhabdomyolysis Disposition: ADMITTED IP TO THIS [facility] Condition: Serious Is patient prescribed a controlled substance at d/c from ED?: No Referrals: Adriana Schmitz MD [Primary Care Provider] - 1-2 days
[2023-12-30 06:23] LABS: Basophils # (A) 0.1 k/uL (0-0.2); Basophils % (A) 1 %; Eosinophils % (A) 0 %; HCT 36.7 % (34.0-46.0); HGB 11.8 gm/dL (11.4-16.0); Lymphocytes # (A) 1.1 k/uL (1.0-4.8); Lymphocytes % (A) 15 %; MCH 28.1 pg (25.0-35.0); MCHC 32.2 g/dL (31.0-37.0); MCV 87.2 fL (80.0-100.0); Mean Platelet Volume 7.9; Monocytes # (A) 0.2 k/uL (0-1.0); Monocytes % (A) 3 %; Neutrophils # (A) 6.1 k/uL (1.3-7.7); Neutrophils % (A) 80 %; Platelet Count 370 k/uL (150-450); RBC 4.22 m/uL (3.80-5.40); WBC 7.6 k/uL (3.8-10.6)
[2023-12-30] MEDS: ONDANSETRON 4 MG/2 ML VIAL IVP STA (06:33)
[2023-12-30] MEDS: KETOROLAC 15 MG/ML 1 ML VIAL IVP STA (06:33)
[2023-12-30] MEDS: LIDOCAINE 4% PATCH TOPICAL ONE (06:33)
[2023-12-30 06:34] LABS: ALT 14 U/L (4-34); AST 23 U/L (14-36); African American GFR (CKD) 26 (>60 ml/min/1.73 sqM); Albumin 4.5 g/dL (3.5-5.0); Alkaline Phosphatase 51 U/L (38-126); Anion Gap 11 mmol/L; Blood Urea Nitrogen 45 mg/dL (7-17); Calcium 9.6 mg/dL (8.4-10.2); Carbon Dioxide 23 mmol/L (22-30); Chloride 102 mmol/L (98-107); Creatine Kinase 172 U/L (30-135); Glucose 161 mg/dL (74-99); Magnesium 1.4 mg/dL (1.6-2.3); Non-African American GFR(CKD) 22 (>60 ml/min/1.73 sqM); Potassium 4.2 mmol/L (3.5-5.1); Sodium 136 mmol/L (137-145); Total Bilirubin 0.3 mg/dL (0.2-1.3)
[2023-12-30] MEDS ORDERED: MORPHINE SULFATE 4 MG/ML SYRINGE IV PRN (06:54)
[2023-12-30] MEDS ORDERED: NALOXONE 0.4 MG/ML 1 ML VIAL IV PRN (06:54)
[2023-12-30] MEDS: MAGNESIUM SULFATE-D5W PMX 1 GM in DEXTROSE/WATER 1 100ML.BAG IVPB SCH (07:21)
[2023-12-30] MEDS: SODIUM CHLORIDE 0.9% 1,000 ML IV ONE (07:21)
--- NOTE | 2023-12-30 07:37 | XR ---
EXAMINATION TYPE: XR femur LT DATE OF EXAM: 12/30/2023 COMPARISON: none HISTORY: pain TECHNIQUE: 2 view left femur FINDINGS: No acute fracture or dislocation is evident. Femoral head articulates with the acetabulum. Mild to moderate degenerative changes at the knee. Follow-up can be performed as clinically indicated IMPRESSION: 1. No acute osseous abnormality left femur.
[2023-12-30] MEDS: SODIUM CHLORIDE 0.9% 1,000 ML IV SCH (08:29)
--- NOTE | 2023-12-30 09:17 | US ---
EXAMINATION TYPE: US venous doppler duplex LE LT DATE OF EXAM: 12/30/2023 7:47 AM COMPARISON: NONE CLINICAL INDICATION: Female, 73 years old with history of pain, lab abnormalities; left leg pain x 1 day SIDE PERFORMED: Left TECHNIQUE: The lower extremity deep venous system is examined utilizing real time linear array sonog jaqueline with graded compression, doppler sonography and color-flow sonography. VESSELS IMAGED: Common Femoral Vein Deep Femoral Vein Greater Saphenous Vein * Femoral Vein Popliteal Vein Small Saphenous Vein * Proximal Calf Veins (* superficial vessels) Left Leg: Negative for DVT Bakers cyst behind knee measuring 5.0 x 2.2 x 4.1 cm. IMPRESSION: 1. Left lower extremity ultrasound negative for deep venous thrombosis. 2. Note is made of a popliteal cyst left popliteal fossa
--- NOTE | 2023-12-30 09:36 | US ---
EXAMINATION TYPE: US arterial LE single level DATE OF EXAM: 12/30/2023 8:14 AM CLINICAL INDICATION: Female, 73 years old with history of Concern for acute occlusion; pain left leg x 1 day History of: Smoker: No Hypertension: Yes Diabetic: Yes Hyperlipidemia: Yes TIA/CVA: No Previous Vascular Surgery: No CAD: No LA: No Vascular Ulcers: No Claudication: No Gangrene: No Doppler Waveforms: Right: Monophasic in the digital artery Left: Monophasic in the digital artery Pulse Volume Recording: Ankle-Brachial Indices: Right: 1.11 Left: 1.17 (Vessel hardening > 1.4; Normal 0.9 - 1.4, Moderate 0.7 - 0.9, Severe 0.5-0.7) Toe Brachial Indices: Right: 0.73 Left: 0.79 IMPRESSION: Some mild narrowing of the digital arteries bilaterally. MTDD
[2023-12-30] MEDS ORDERED: DEXTROSE 50% SYRINGE 50 ML IVP PRN ×2 (10:18)
--- NOTE | 2023-12-30 11:26 | P.NPCON ---
History of Present Illness - Reason for Consult acute renal failure - History of Present Illness Reason for consultation: Acute kidney injury History of present illness: Patient is a 73-year-old female seen in renal consultation for acute kidney injury. Creatinine 2.15 on admission. Prior creatinine from April 2023 in October 2023 noted to be 1.2. Patient does have history of diabetes. Patient den ies seeing a slot technician outpatient. Patient came to the hospital due to left leg pain. Patient states the pain started after she got done doing some yard work yesterday. Patient states she was sitting in making [employer]. When she got done and stood up her left leg started to hurt from ankle all the way up to the mid thigh. She denies falling. Denies any trauma. Admits to good urine output. No gross hematuria or dysuria. Denies chest pain or shortness of breath. Denies family history of renal disease. Denies history of coronary artery disease. She did take ibuprofen twice over the last week. Patient does have history of hypertension. She was taking losartan as well as hydroc hlorothiazide outpatient. Both are currently held. Hemodynamically stable. She did receive 1 L bolus of normal saline and is currently maintained on normal saline at 130 cc an hour. Lower extremity ultrasound showed mild narrowing of the digital arteries bilaterally. No evidence of DVT noted. No fracture noted. Vital signs are stable. General: No acute distress. HEENT: Head exam is unremarkable. LUNGS: No audible rhonchi or wheezes. HEART: Rate and Rhythm are regular. ABDOMEN: Nontender. EXTREMITITES: No edema. Past Medical History Past Medical History: Diabetes Mellitus, GERD/Reflux, Hyperlipidemia, Hypertension, Osteoarthritis (OA), Syncope Additional Past Medical History / Comment(s): positive cologuard, had covid October 2020,previous palpitations and fluttering of heart sees Dr Morris no problems at this time, hemmorhhoid History of Any Multi-Drug Resistant Organisms: None Reported Past Surgical History: Orthopedic Surgery Additional Past Surgical History / Comment(s): ORIF rt ankle-hardware later removed, colonscopy Past Anesthesia/Blood Transfusion Reactions: Motion Sickness Past Psychological History: No Psychological Hx Reported Smoking Status: Never smoker Past Alcohol Use History: None Reported Past Drug Use History: None Reported - Past Family History Mother Family Medical History: No Reported History Brother(s) Family Medical History: Cancer Additional Family Medical History / Comment(s): lung Medications and Allergies Home Medications Medication Instructions Recorded Confirmed Type Omeprazole 20 mg PO AC-SUPPER 12/03/18 12/30/23 History Rosuvastatin Calcium [Crestor] 10 mg PO HS 12/03/18 12/30/23 History Losartan [Cozaar] 50 mg PO BID 01/26/21 12/30/23 History hydroCHLOROthiazide [Hydrodiuril] 12.5 mg PO DAILY 01/26/21 12/30/23 History metFORMIN HCL [Glucophage] 500 mg PO BID-W/MEALS 01/26/21 12/30/23 History Calcium Carbonate/Vitamin D3 1 cap PO DAILY 12/30/23 12/30/23 History [Calcium 600 mg-D3 10 Mcg (400 Iu)] L.acidoph,Paracasei, B.lactis 1 cap PO BID-W/MEALS 12/30/23 12/30/23 History [Probiotic] Linagliptin [Tradjenta] 5 mg PO DAILY 12/30/23 12/30/23 History Allergies Allergy/AdvReac Type Severity Reaction Status Date / Time No Known Allergies Allergy Verified 12/30/23 10:18 Physical Exam Vitals: Vital Signs Temp Pulse Pulse Resp BP BP Pulse Ox 12/30/23 10:20 98 F 82 16 152/79 97 12/30/23 09:56 76 16 145/79 98 12/30/23 08:36 78 18 140/76 98 12/30/23 06:39 85 18 128/72 98 12/30/23 02:52 98 F 94 20 162/83 99 Intake and Output 12/29/23 12/30/23 12/30/23 22:59 06:59 14:59 Other: # Voids 1 Weight 77.111 kg Results - Lab Results Most recent lab results Calcium 9.6 mg/dL (8.4-10.2) 12/30/23 06:08 Magnesium 1.4 mg/dL (1.6-2.3) L 12/30/23 06:08 12/30/23 06:08 12/30/23 06:08 Assessment and Plan Plan: Assessment: 1. Acute kidney injury secondary to ATN secondary to hypovolemia. Creatinine 2.15 on admission. Creatinine 1.2 in October 2023 in April 2023. 2. Hypomagnesemia from diuretic use. Replaced. 3. Benign hypertension. 4. Left lower extremity pain. Unclear cause. No fracture noted. No trauma. No DVT noted. CK level mildly elevated at 172. She does take statin outpatient. 5. Diabetes mellitus. Plan: Maintain IV fluids. Check UA. Check renal ultrasound. Check bladder scan to rule out urinary retention. Continue to hold losartan and hydrochlorothiazide. Add amlodipine 5 mg once daily. Avoid nephrotoxins. Thank you for the consultation. I will continue to follow the patient with you during her hospital stay.
[2023-12-30 11:27] LABS: C Reactive Protein <0.5 mg/dL (<1.0)
[2023-12-30 12:10] LABS: Glucose,Whole Blood 124 mg/dL (70-110)
--- NOTE | 2023-12-30 12:27 | US ---
EXAMINATION TYPE: US kidneys/renal and bladder DATE OF EXAM: 12/30/2023 COMPARISON: NONE CLINICAL INDICATION: Female, 73 years old with history of Jai; JAI EXAM MEASUREMENTS: Right Kidney: 9.5 x 4.3 x 3.3 cm Left Kidney: 8.7 x 5.2 x 3.9 cm Right Kidney: No hydronephrosis or masses seen Left Kidney: No hydronephrosis or masses seen Bladder: Anechoic Bilateral Jets seen: no IMPRESSION: No acute renal ultrasound abnormality.
[2023-12-30 12:28] LABS: Appearance,Urine Clear (Clear); Bacteria,Urine Rare /hpf; Bilirubin,Urine Negative (Negative); Blood,Urine Negative (Negative); Color,Urine Colorless; Glucose,Urine (UA) Negative (Negative); Hyaline Casts,Urine 3 /lpf (0-2); Ketones,Urine Negative (Negative); Leukocyte Esterase,Urine Large (Negative); Mucus,Urine Rare /hpf; Nitrite,Urine Negative (Negative); Protein,Urine Trace (Negative); RBC,Urine <1 /hpf (0-5); Specific Gravity,Urine 1.016 (1.001-1.035); Squamous Epithelial Cell,Urine <1 /hpf (0-4); Urobilinogen,Urine <2.0 mg/dL (<2.0); WBC,Urine 9 /hpf (0-5)
[2023-12-30] MEDS: INSULIN ASPART (NovoLOG) 100 UNIT/ML VIAL SQ SCH (12:32)
[2023-12-30] MEDS: HYDROcodone/APAP 5-325MG 1 EACH TAB PO PRN (12:35)
--- NOTE | 2023-12-30 13:02 | P.HPIM ---
History of Present Illness H&P Date: 12/30/23 History of present illness; patient is a 73-year-old lady with past medical histroy significant for hypertension, hyperlipidemia, diabetes mellitus presented to the ER for complaint of left thigh pain. Patient stated she was all right 1 day back when he started noticing that she was having severe pain in the back of her left thigh. Patient was [place] any pain but later on started noticing this with pain. There was no history of any trauma to the thigh. There was no complaint of any numbness or swelling of the thigh. Patient denies any fever or chills. Denies any nausea, vomiting, abdominal pain. There was no complaint of chest pain or shor tness of breath. Because of the left thigh pain, patient came to the ER Initial lab work done in the ER showed WBC 7.6, hemoglobin 11.8, platelet count 370, sodium 130, potassium 4.2, BUN 45, creatinine 2.15, glucose 161, magnesium 1.4, bilirubin 0.3, AST 23, ALT 14, alk phos 51, creatinine kinase 172 X-ray femur left showed no acute osseous abnormality of left Ultrasound left lower extremity negative for DVT Arterial ultrasound lower extremities done showed some mild narrowing of the digital arteries bilateral Patient admitted to internal medicine service REVIEW OF SYSTEMS: CONSTITUTIONAL: No fever, no malaise, no fatigue. HEENT: No recent visual problems or hearing problems. Denied any sore throat. CARDIOVASCULAR: No chest pain, orthopnea, PND, no palpitations, no syncope. PULMONARY: No shortness of breath, no cough, no hemoptysis. GASTROINTESTINAL: No diarrhea, no nausea, no vomiting, no abdominal pain. NEUROLOGICAL: No headaches, no weakness, no numbness. HEMATOLOGICAL: Denies any bleeding or petechiae. GENITOURINARY: Denies any burning micturition, frequency, or urgency. MUSCULOSKELETAL/RHEUMATOLOGICAL: As mentioned HPI ENDOCRINE: Denies any polyuria or polydipsia. The rest of the 14-point review of systems is negative. PHYSICAL EXAMINATION: GENERAL: The patient is alert and oriented x3, not in any acute distress. Well developed, well nourished. HEENT: Pupils are round and equally reacting to light. EOMI. No scleral icterus. No conjunctival pallor. Normocephalic, atraumatic. No pharyngeal erythema. No thyromegaly. CARDIOVASCULAR: S1 and S2 present. No murmurs, rubs, or gallops. PULMONARY: Chest is clear to auscultation, no wheezing or crackles. ABDOMEN: Soft, nontender, nondistended, normoactive bowel sounds. No palpable organomegaly. MUSCULOSKELETAL: No joint swelling or deformity. EXTREMITIES: No cyanosis, clubbing, or pedal edema. NEUROLOGICAL: Gross neurological examination did not reveal any focal deficits. SKIN: No rashes. Assessment and plan NATALEE Left thigh pain Hypomagnesemia Hypertension Hyperlipidemia Diabetes mellitus Monitor vital signs Monitor CBC Monitor CMP Avoid nephrotoxic agent Ordered ultrasound of kidneys Ordered urine lites Continue IV fluids Hold patient's hydrochlorothiazide and losartan because of NATALEE. Start sliding scale insulin, hold metformin for now. Resume home med Consult nephrology Labs and medication were reviewed.. Continue same treatment. Continue with symptomatic treatment. Resume home medication. Monitor labs and vitals. DVT and GI prophylaxis. Further recommendations as per clinical course of the patient Dictation was produced using [employer] dictation software. please excuse any grammatical, word or spelling errors. Past Medical History Past Medical History: Diabetes Mellitus, GERD/Reflux, Hyperlipidemia, Hyperten anibal, Osteoarthritis (OA), Syncope Additional Past Medical History / Comment(s): positive cologuard, had covid October 2020,previous palpitations and fluttering of heart sees Dr Morris no problems at this time, hemmorhhoid History of Any Multi-Drug Resistant Organisms: None Reported Past Surgical History: Orthopedic Surgery Additional Past Surgical History / Comment(s): ORIF rt ankle-hardware later removed, colonscopy Past Anesthesia/Blood Transfusion Reactions: Motion Sickness Past Psychological History: No Psychological Hx Reported Smoking Status: Never smoker Past Alcohol Use History: None Reported Past Drug Use History: None Reported - Past Family History Mother Family Medical History: No Reported History Brother(s) Family Medical History: Cancer Additional Family Medical History / Comment(s): lung Medications and Allergies Home Medications Medication Instructions Recorded Confirmed Type Omeprazole 20 mg PO AC-SUPPER 12/03/18 12/30/23 History Rosuvastatin Calcium [Crestor] 10 mg PO HS 12/03/18 12/30/23 History Losartan [Cozaar] 50 mg PO BID 01/26/21 12/30/23 History hydroCHLOROthiazide [Hydrodiuril] 12.5 mg PO DAILY 01/26/21 12/30/23 History metFORMIN HCL [Glucophage] 500 mg PO BID-W/MEALS 01/26/21 12/30/23 History Calcium Carbonate/Vitamin D3 1 cap PO DAILY 12/30/23 12/30/23 History [Calcium 600 mg-D3 10 Mcg (400 Iu)] L.acidoph,Paracasei, B.lactis 1 cap PO BID-W/MEALS 12/30/23 12/30/23 History [Probiotic] Linagliptin [Tradjenta] 5 mg PO DAILY 12/30/23 12/30/23 History Allergies Allergy/AdvReac Type Severity Reaction Status Date / Time No Known Allergies Allergy Verified 12/30/23 10:18 Physical Exam Vitals: Vital Signs Temp Pulse Resp BP Pulse Ox 12/30/23 08:36 78 18 140/76 98 12/30/23 06:39 85 18 128/72 98 12/30/23 02:52 98 F 94 20 162/83 99 Intake and Output 12/29/23 12/30/23 12/30/23 22:59 06:59 14:59 Other: Weight 77.111 kg Results CBC & Chem 7: 12/30/23 06:08 12/30/23 06:08 Labs: Abnormal Lab Results - Last 24 Hours (Table) 12/30/23 Range/Units 06:08 Sodium 136 L (137-145) mmol/L BUN 45 H (7-17) mg/dL Creatinine 2.15 H (0.52-1.04) mg/dL Glucose 161 H (74-99) mg/dL Magnesium 1.4 L (1.6-2.3) mg/dL Creatine Kinase 172 H (30-135) U/L
[2023-12-30 17:39] LABS: Glucose,Whole Blood 154 mg/dL (70-110)
[2023-12-30] MEDS ORDERED: ONDANSETRON 4 MG/2 ML VIAL IVP PRN (18:18)
[2023-12-30] MEDS: HYDROmorphone 0.5 MG/0.5 ML SYRINGE IVP PRN (18:26)
[2023-12-30 20:50] LABS: Glucose,Whole Blood 165 mg/dL (70-110)
[2023-12-31 06:05] LABS: Glucose,Whole Blood 142 mg/dL (70-110)
[2023-12-31] MEDS: amLODIPine 5 MG TAB PO SCH (08:28)
[2023-12-31 08:42] VITALS: TEMP 98.2
[2023-12-31 09:22] LABS: Basophils # (A) 0.08 X 10*3/uL (0.00-0.10); Eosinophils # (A) 0.35 X 10*3/uL (0.04-0.35); Eosinophils % (A) 4.5 %; HCT 35.3 % (37.2-46.3); HGB 11.2 g/dL (12.0-15.0); Lymphocytes # (A) 2.08 X 10*3/uL (0.90-5.00); Lymphocytes % (A) 26.9 %; MCH 27.4 pg (27.0-32.0); MCHC 31.7 g/dL (32.0-37.0); MCV 86.3 FL (80.0-97.0); Mean Platelet Volume 10.3 FL (9.5-12.2); Monocytes # (A) 0.64 X 10*3/uL (0.20-1.00); Monocytes % (A) 8.3 %; NRBC Per 100 WBC 0 X 10*3/uL (0.00-0.01); Neutrophils # (A) 4.56 X 10*3/uL (1.80-7.70); Platelet Count 371 X 10*3/uL (140-440); RBC 4.09 X 10*6/uL (4.10-5.20); RDW 12.9 % (11.5-14.5); WBC 7.73 X 10*3/uL (4.50-10.00)
[2023-12-31 09:39] LABS: ALT 15 U/L (8-44); AST 32 U/L (13-35); Albumin 4.4 g/dL (3.8-4.9); Albumin/Globulin Ratio 1.91 Ratio (1.60-3.17); Alkaline Phosphatase 46 U/L (41-126); BUN/Creat Ratio 20.57 Ratio (12.00-20.00); Blood Urea Nitrogen 28.8 mg/dL (9.0-27.0); Calcium 9.8 mg/dL (8.7-10.3); Carbon Dioxide 25.5 mmol/L (21.6-31.8); Chloride 104 mmol/L (96-109); Globulin 2.3 g/dL (1.6-3.3); Glucose 162 mg/dL (70-110); Potassium 4.9 mmol/L (3.5-5.5); Sodium 141 mmol/L (135-145); Total Bilirubin 0.3 mg/dL (0.3-1.2); Total Protein 6.7 g/dL (6.2-8.2)
--- NOTE | 2023-12-31 12:00 | P.PN ---
Subjective Patient is seen in follow-up for acute kidney injury. Renal function improved. Currently on IV fluids. No vomiting or diarrhea. Vital signs are stable. General: No acute distress. HEENT: Head exam is unremarkable. LUNGS: No audible rhonchi or wheezes. HEART: Rate and Rhythm are regular. ABDOMEN: Nontender. EXTREMITITES: No edema. Objective - Vital Signs Vital signs: Vital Signs Temp 98.2 F 12/31/23 07:00 Pulse 76 12/31/23 07:00 Resp 16 12/31/23 07:00 BP 152/78 12/31/23 07:00 Pulse Ox 96 12/31/23 07:00 FiO2 Intake & Output 12/30/23 12/31/23 12/31/23 18:59 06:59 18:59 Intake Total 118 Output Total 4 Balance 114 Weight 77.111 kg Intake: Oral 118 Output: Post Void Residual 4 Other: Voiding Method Toilet # Voids 3 2 - Labs CBC & Chem 7: 12/31/23 06:12 12/31/23 06:12 Labs: Abnormal Lab Results - Last 24 Hours (Table) 12/30/23 12/30/23 12/30/23 Range/Units 06:08 10:35 10:35 RBC (4.10-5.20) X 10*6/uL Hgb (12.0-15.0) g/dL Hct (37.2-46.3) % MCHC (32.0-37.0) g/dL BUN (9.0-27.0) mg/dL Est GFR (CKD-EPI) (>=60) BUN/Creatinine Ratio (12.00-20.00) Ratio Glucose (70-110) mg/dL POC Glucose (mg/dL) (70-110) mg/dL Hemoglobin A1c (<=6.0) % Osmolality 303 H (275-295) mOsm/kg Urine Protein Trace H (Negative) Ur Leukocyte Esterase Large H (Negative) Urine WBC 9 H (0-5) /hpf Urine Bacteria Rare H (None) /hpf Hyaline Casts 3 H (0-2) /lpf Urine Mucus Rare H (None) /hpf Urine Osmolality 398 L (400-1100) mOsm/kg Ur Random Sodium (40-220) mmol/L 12/30/23 12/30/23 12/30/23 Range/Units 10:35 12:09 17:37 RBC (4.10-5.20) X 10*6/uL Hgb (12.0-15.0) g/dL Hct (37.2-46.3) % MCHC (32.0-37.0) g/dL BUN (9.0-27.0) mg/dL Est GFR (CKD-EPI) (>=60) BUN/Creatinine Ratio (12.00-20.00) Ratio Glucose (70-110) mg/dL POC Glucose (mg/dL) 124 H 154 H (70-110) mg/dL Hemoglobin A1c (<=6.0) % Osmolality (275-295) mOsm/kg Urine Protein (Negative) Ur Leukocyte Esterase (Negative) Urine WBC (0-5) /hpf Urine Bacteria (None) /hpf Hyaline Casts (0-2) /lpf Urine Mucus (None) /hpf Urine Osmolality (400-1100) mOsm/kg Ur Random Sodium 39 L (40-220) mmol/L 12/30/23 12/31/23 12/31/23 Range/Units 20:49 06:04 06:12 RBC (4.10-5.20) X 10*6/uL Hgb (12.0-15.0) g/dL Hct (37.2-46.3) % MCHC (32.0-37.0) g/dL BUN (9.0-27.0) mg/dL Est GFR (CKD-EPI) (>=60) BUN/Creatinine Ratio (12.00-20.00) Ratio Glucose (70-110) mg/dL POC Glucose (mg/dL) 165 H 142 H (70-110) mg/dL Hemoglobin A1c 7.5 H (<=6.0) % Osmolality (275-295) mOsm/kg Urine Protein (Negative) Ur Leukocyte Esterase (Negative) Urine WBC (0-5) /hpf Urine Bacteria (None) /hpf Hyaline Casts (0-2) /lpf Urine Mucus (None) /hpf Urine Osmolality (400-1100) mOsm/kg Ur Random Sodium (40-220) mmol/L 12/31/23 12/31/23 Range/Units 06:12 06:12 RBC 4.09 L (4.10-5.20) X 10*6/uL Hgb 11.2 L (12.0-15.0) g/dL Hct 35.3 L (37.2-46.3) % MCHC 31.7 L (32.0-37.0) g/dL BUN 28.8 H (9.0-27.0) mg/dL Est GFR (CKD-EPI) 40 L (>=60) BUN/Creatinine Ratio 20.57 H (12.00-20.00) Ratio Glucose 162 H (70-110) mg/dL POC Glucose (mg/dL) (70-110) mg/dL Hemoglobin A1c (<=6.0) % Osmolality (275-295) mOsm/kg Urine Protein (Negative) Ur Leukocyte Esterase (Negative) Urine WBC (0-5) /hpf Urine Bacteria (None) /hpf Hyaline Casts (0-2) /lpf Urine Mucus (None) /hpf Urine Osmolality (400-1100) mOsm/kg Ur Random Sodium (40-220) mmol/L Assessment and Plan Plan: Assessment: 1. Acute kidney injury secondary to ATN secondary to hypovolemia. Creatinine 2.15 on admission and improved to 1.4 today. Creatinine 1.2 in October 2023 in April 2023. UA fairly benign. No hydronephrosis noted on kidney ultrasound. Left kidney noted to be atrophic. 2. Hypomagnesemia from diuretic use. Replaced. 3. Benign hypertension. Stable. 4. Left lower extremity pain. Unclear cause. No fracture noted. No trauma. No DVT noted. CK level mildly elevated at 172. She does take statin outpatient. 5. Diabetes mellitus. Plan: Maintain IV fluids. Decrease rate to 60 cc an hour. Continue to hold losartan and hydrochlorothiazide. Maintain amlodipine. Okay to increase dose to 10 mg if blood pressure staying persistently above 135/80. Avoid nephrotoxins. Follow-up outpatient 1 week postdischarge.
[2023-12-31 12:11] LABS: Glucose,Whole Blood 163 mg/dL (70-110)
[2023-12-31 13:36] VITALS: BP 152/85; PULSE 79; RESP 15
--- NOTE | 2023-12-31 14:09 | P.DS ---
Providers Date of admission: 12/30/23 06:54 Expected date of discharge: 12/31/23 Attending physician: Duane Mandel Consults: 12/30/23 10:10 Consult Physician Routine Consulting Provider: Tu Greenberg Consult Reason/Comments: natalee Do you want consulting provider notified?: Yes Primary care physician: Adriana Schmitz [facility] Course: Discharge diagnoses; NATALEE Left thigh pain Hypomagnesemia Hypertension Hyperlipidemia Diabetes mellitus Hospital course; patient is a 73-year-old lady with past medical histroy significant for hypertension, hyperlipidemia, diabetes mellitus presented to the ER for complaint of left thigh pain. Patient stated she was all right 1 day back when he started noticing that she was having severe pain in the back of her left thigh. Patient [place] pain but later on started noticing this with pain. There was no history of any trauma to the thigh. There was no complaint of any numbness or swelling of the thigh. Patient denies any fever or chills. Denies any nausea, vomiting, abdominal pain. There was no complaint of chest pain or shortness of breath. Because of the left thigh pain, patient came to the ER Initial lab work done in the ER showed WBC 7.6, hemoglobin 11.8, platelet count 370, sodium 130, potassium 4.2, BUN 45, creatinine 2.15, glucose 161, magnesium 1.4, bilirubin 0.3, AST 23, ALT 14, alk phos 51, creatinine kinase 172 X-ray femur left showed no acute osseous abnormality of left Ultrasound left lower extremity negative for DVT Arterial ultrasound lower extremities done showed some mild narrowing of the digital arteries bilateral Patient admitted to internal medicine service 12/30. Patient seen and examined. Nephrology had evaluated the patient, patient kidney functions have improved to baseline. Nephrology recommended holding off on losartan and HCTZ at discharge and sending patient home on Norvasc. Patient to follow-up outpatient with PCP PHYSICAL EXAMINATION: GENERAL: The patient is alert and oriented x3, not in any acute distress. Well developed, well nourished. HEENT: Pupils are round and equally reacting to light. EOMI. No scleral icterus. No conjunctival pallor. Normocephalic, atraumatic. No pharyngeal erythema. No thyromegaly. CARDIOVASCULAR: S1 and S2 present. No murmurs, rubs, or gallops. PULMONARY: Chest is clear to auscultation, no wheezing or crackles. ABDOMEN: Soft, nontender, nondistended, normoactive bowel sounds. No palpable organomegaly. MUSCULOSKELETAL: No joint swelling or deformity. EXTREMITIES: No cyanosis, clubbing, or pedal edema. NEUROLOGICAL: Gross neurological examination did not reveal any focal deficits. SKIN: No rashes. Dictation was produced using [employer] dictation software. please excuse any grammatical, word or spelling errors. Patient Condition at Discharge: Good Plan - Discharge Summary Discharge Rx Participant: No New Discharge Prescriptions: New amLODIPine [Norvasc] 10 mg PO DAILY #30 tab Continue Rosuvastatin Calcium [Crestor] 10 mg PO HS Omeprazole 20 mg PO AC-SUPPER metFORMIN HCL [Glucophage] 500 mg PO BID-W/MEALS Linagliptin [Tradjenta] 5 mg PO DAILY L.acidoph,Paracasei, B.lactis [Probiotic] 1 cap PO BID-W/MEALS Calcium Carbonate/Vitamin D3 [Calcium 600 mg-D3 10 Mcg (400 Iu)] 1 cap PO DAILY Discontinued hydroCHLOROthiazide [Hydrodiuril] 12.5 mg PO DAILY Losartan [Cozaar] 50 mg PO BID Discharge Medication List Omeprazole 20 mg PO AC-SUPPER 12/03/18 [History] Rosuvastatin Calcium [Crestor] 10 mg PO HS 12/03/18 [History] metFORMIN HCL [Glucophage] 500 mg PO BID-W/MEALS 01/26/21 [History] Calcium Carbonate/Vitamin D3 [Calcium 600 mg-D3 10 Mcg (400 Iu)] 1 cap PO DAILY 12/30/23 [History] L.acidoph,Paracasei, B.lactis [Probiotic] 1 cap PO BID-W/MEALS 12/30/23 [History] Linagliptin [Tradjenta] 5 mg PO DAILY 12/30/23 [History] amLODIPine [Norvasc] 10 mg PO DAILY #30 tab 12/31/23 [Rx] Follow up Appointment(s)/Referral(s): Adriana Schmitz MD [Primary Care Provider] - 1-2 days Discharge Disposition: HOME SELF-CARE
== END 2023-12-31 15:20 | disposition home or self-care (01) ==
LOC: EC 02:40 → 6NMEDSUR 06:54
PROVIDERS: ADMIT Hospitalist; ATTEND Hospitalist
DX: M79.605 Pain in left leg (principal); N17.9 Acute kidney failure, unspecified; E83.42 Hypomagnesemia; I10 Essential (primary) hypertension; E78.5 Hyperlipidemia, unspecified; M79.652 Pain in left thigh; E11.9 Type 2 diabetes mellitus without complications; Z86.16 Personal history of COVID-19; Z79.899 Other long term (current) drug therapy; Z79.84 Long term (current) use of oral hypoglycemic drugs
CPT/HCPCS: 96367; 96375 ×2; 96365; 96366; 99285; 36415; 85379; 84300; 83930; 82570; 80053 ×2; 85652; 82550; 83605; 83735 ×2; 85025 ×2; 86140; 81001; 83935; 87205; 83036; 73552; 93971; 76770; 93922; G0378 ×2; J2270; J2405; J3475; J1885; J1170; 93923

== ENCOUNTER → 2024-01-25 | Outpatient (CLI) | payer MEDICARE ==
[2024-01-25 15:31] LABS: Chol/HDL Ratio 2.04 Ratio; LDL Cholesterol,Calculated 54.9 mg/dL (0.0-131.0)
== END | disposition home or self-care (01) ==
LOC: LABWHC1 08:29
PROVIDERS: ATTEND Family Medicine
DX: E11.9 Type 2 diabetes mellitus without complications (principal); E78.5 Hyperlipidemia, unspecified; E83.52 Hypercalcemia
CPT/HCPCS: 36415; 80061; 83036; 83970